=== PATIENT | male | born 1975 | race Caucasian/White ===

== ENCOUNTER → 2023-12-11 | Outpatient (CLI) | payer OTHER | LOC: M PLARAD 11:15 | PROVIDERS: ATTEND Student in an Organized Health Care Education/Training Program | DX: C32.0 Malignant neoplasm of glottis (principal); Z53.9 Procedure and treatment not carried out, unspecified reason ==

== ENCOUNTER → 2023-12-12 | Outpatient (CLI) | payer OTHER | LOC: M PLARAD 08:09 | PROVIDERS: ATTEND Student in an Organized Health Care Education/Training Program | DX: C32.0 Malignant neoplasm of glottis (principal) ==